=== PATIENT | female | born 1925 | race Caucasian/White ===

== ENCOUNTER 2016-12-11 07:39 | Inpatient (IN) | payer MEDICARE, OTHER ==
[~2016-12-11] VITALS: Ht 160 cm; Wt 75.5 kg
[~2016-12-11 07:39] MED LIST: CALCIUM 600 +1 EAC6 PO; CENTRUM SILVER1 EAC1 PO; LOTENSIN10 MG PO; MACROBID100 MG PO; MIRALAX PACKET17 GM PO; MOBIC15 MG PO; NUCYNTA50 MG PO; OCUVITE SOFTGE1 EACH PO; POTASSIUM PO; PRAVACHOL20 M1 PO; TYLENOL EXTRA500 M1 PO; VITAMIN D50000 UNIT PO; ZOFRAN8 MG PO
[2016-12-16] MEDS ORDERED: VITAMIN D250000 UNIT PO (11:43)
[2016-12-16] MEDS ORDERED: CENTRUM SILVER1 EAC1 PO (11:44)
[2016-12-16] MEDS ORDERED: TYLENOL ARTHRI650 MG PO (11:44)
[2016-12-16] MEDS ORDERED: MOBIC15 MG PO (11:44)
[2016-12-16] MEDS ORDERED: MICRO-K DPS10 MEQ PO (11:44)
[2016-12-16] MEDS ORDERED: CALCIUM 600 +1 EA15 PO (11:45)
[2016-12-16] MEDS ORDERED: OCUVITE SOFTGE1 EACH PO (11:45)
[2016-12-16] MEDS ORDERED: FLAGYL-DPS500 MG PO (11:45)
--- NOTE | 2016-12-21 09:43 | HP ---
ADMIT: 12/11/2016 RM/LOC: 301 [facility] MR#: [id number] [facility] [address] [place] [id number] NATALIIA MAYO [address] [place] [id number] History and Physical SEX: F AGE: 89 : 1925 DATE OF SERVICE: CHIEF COMPLAINT: Weakness, diarrhea, and dysuria. HISTORY OF PRESENT ILLNESS: Ms. Mayo is a very pleasant 89-year-old female. She has a past medical history significant for history of some UTIs, status post some kind of bladder surgery a couple years ago, hypertension, and osteoarthritis who apparently had called the office on 12/06 with complaints of burning with urination. She had given a UA that was not cultured, but did show definite UTI. She was started on Bactrim at that time. Then she reports, she continued to have kind of some shaking chill episodes, so therefore she called back to the office on 12/09 and at that time, her antibiotics were switched over to Cipro. She reports that she continued to have shaking chills at times and then yesterday had some diarrhea, did not feel like eating. Actually starting today had diarrhea, yesterday felt weak, therefore felt like she warranted evaluation in the ER. She was noted to be hypotensive, have a UTI, therefore they felt warranted admission for further evaluation and treatment. She reports that she currently is not having any pain. She feels like her belly is a little distended, and she feels a little bloated. PAST MEDICAL HISTORY: Significant for. 1. Hypertension. 2. Osteoarthritis, diffuse. 3. She has history of right shoulder replacement. 4. Left shoulder surgery. 5. Status post knee replacement. 6. Status post hip replacements. 7. Status post fall 1 year ago today with transverse process fractures. 8. Status post hysterectomy. 9. Status post vein stripping. 10.History of hyperlipidemia. 11.She is status post bladder repair surgery. HOME MEDICATIONS: 1. Benazepril 10 mg p.o. daily. 2. Tylenol. 3. Vitamin D. 4. Pravastatin 20 mg p.o. daily. ALLERGIES: LATEX. REVIEW OF SYSTEMS: Obtained, was otherwise essentially negative. SOCIAL HISTORY: She does not smoke or use any significant alcohol. She lives with her son. FAMILY HISTORY: Relatively noncontributory. ADMIT: 12/11/2016 RM/LOC: 301 [facility] MR#: [id number] [address] [id number] NATALIIA MAYO [address] [place] [address] History and Physical SEX: F AGE: 89 : 1925 PHYSICAL EXAM: VITAL SIGNS: Reviewed. GENERAL: She is alert and oriented. She is really in no apparent distress. HEENT: Pupils are equal, round, reactive. Oropharynx has dry mucous membranes. NECK: Supple. HEART: Normal rate with a regular rhythm. LUNGS: Clear to auscultation bilaterally. ABDOMEN: Slightly distended, soft, bowel sounds are hyperactive. EXTREMITIES: Have no evidence of edema. SKIN: Warm and dry. NEUROLOGICAL: She moves her upper and lower extremities symmetrically. LABORATORY DATA: Reviewed. ASSESSMENT/PLAN: 1. Urinary tract infection. At this time, I suspect this is the source of her sepsis. We will go ahead and give her IV Cipro and Zosyn and await culture. 2. Sepsis. We will give her IV fluids, monitor her lactic acid and procalcitonin. 3. Diarrhea. We will go ahead and check a C. diff as well as a stool culture. 4. Hypotension. 5. Code status. I did discuss with the patient, she wishes to be a full code. I spent 40 minutes in the admission and consultation of this patient. Winifred Dan MD/ tali JOB #: [id number] CC: José Miguel Carter, Attending Physician José Miguel Carter, Family Physician
--- NOTE | 2016-12-22 09:23 | DS ---
ADMIT: 12/11/2016 RM/LOC: 433 [facility] MR#: [id number] [id number] [id number] NATALIIA MIRANDA [address] [place] [id number] Discharge Summary SEX: F AGE: 89 : 1925 ADMISSION DATE: 12/11/2016 DISCHARGE DATE: 12/15/2016 CONSULTATIONS: None. PROCEDURES: None. FINAL DIAGNOSES: 1. Acute C diff (Clostridium difficile) colitis. 2. Hypertension. 3. UTI (urinary tract infection). REASON FOR ADMISSION: The patient is a very pleasant, 89-year-old female, who presented to the emergency room with increasing weakness, overall not feeling well. Some dehydration. Admitted to the hospital for further evaluation. HOSPITAL COURSE: The patient was admitted. With her diarrhea, found ultimately to have C. diff. Placed on antibiotics. Slowly and steadily improved. Fever feelings dissipated. She was slowly able to add back a full diet. IV fluids were able to be stopped. [place] safe and stable for discharge to home. DISCHARGE INSTRUCTIONS: She will discharge to home. Please see discharge MAR, which I fully reviewed. She will follow up with me in clinic in one week. She will finish a 10 day course of Flagyl. José Miguel Carter MD/ vdg JOB #: [id number] CC: José Miguel Carter MD, Attending Physician José Miguel Carter MD, Family Physician
--- NOTE | 2016-12-29 11:50 | ER ---
ADMIT: 12/11/2016 RM/LOC: 301 [facility] MR#: [id number] [id number] [facility] [address] [place] [id number] NATALIIA MIRANDA [address] [place] [id number] Emergency Room Report SEX: F AGE: 89 : 1925 DATE: 12/11/2016 ADDENDUM: An 89-year-old white female, coming in with fever. She was treated for UTI this week; but now, she is septic. White count 14.8, lactate is 1.5; however, procalcitonin is up at 3.0. Her pressure dipped to MAP of 58, which puts her in the sepsis category. We have started Zosyn on her. We have started 30 mL/kg fluid down here. She will be admitted to ICU. The antibiotics are given in 2-hour window. I spoke with Dr. Dan. CONDITION ON DISCHARGE: Critical, but stable. Burak Harding MD/ modl JOB #: [id number] CC: José Miguel Carter MD, Attending Physician José Miguel Carter MD, Family Physician
== END 2016-12-15 14:30 | disposition home or self-care (01) | DRG 872 ==
LOC: ER 07:39 → 4PCU 09:40 → 3ICU 09:40 → 4PCU 12-12 11:06
PROVIDERS: ADMIT Internal Medicine
DX: A41.4 Sepsis due to anaerobes (principal); N17.9 Acute kidney failure, unspecified; A04.7 Enterocolitis due to Clostridium difficile; N39.0 Urinary tract infection, site not specified; I10 Essential (primary) hypertension; E87.6 Hypokalemia; E86.0 Dehydration; L27.1 Localized skin eruption due to drugs and medicaments taken internally; E78.5 Hyperlipidemia, unspecified; M19.90 Unspecified osteoarthritis, unspecified site; Z96.611 Presence of right artificial shoulder joint; Z96.643 Presence of artificial hip joint, bilateral; Z87.440 Personal history of urinary (tract) infections; Z96.659 Presence of unspecified artificial knee joint